=== PATIENT | male | born 1975 | race Hispanic/Latino ===

== ENCOUNTER 2017-04-28 08:04 | Emergency (ER) | payer SELFPAY ==
[2017-04-28 08:50] LABS: #Basophils 0.1 thou/uL (0.0-0.2); #Lymphocytes 1.6 thou/uL (1.20-3.40); #Monocytes 0.4 thou/uL (0.11-0.59); #Neutrophils 8.3 thou/uL (1.40-6.50); %Basophils 0.8 % (0.0-1.0); %Eosinophils 0.4 % (0.0-10.0); %Lymphocytes 15.1 % (21.0-51.0); %Monocytes 3.7 % (0.0-10.0); Hematocrit 42.1 % (42.0-52.0); Mean Platelet Volume 6.9 fL (7.4-10.4); Red Blood Cell (RBC) Count 4.65 mill/uL (4.70-6.10); White Blood Cell (WBC) Count 10.3 thou/uL (4.8-10.8)
[2017-04-28] MEDS ORDERED: Lorazepam 2 MG/ML VIAL ONE (09:05)
[2017-04-28 09:13] LABS: ALT (SGPT) 27 U/L (8-55); AST (SGOT) 18 U/L (5-34); Alkaline Phosphatase 100 U/L (40-150); Anion Gap 14 mmol/L (10-20); BUN (Urea Nitrogen) 16 mg/dL (8.9-20.6); Bilirubin, Total 0.3 mg/dL (0.2-1.2); Calc. Creatinine Clearance 0 mL/min (70-130); Calcium 9.5 mg/dL (7.8-10.44); Carbon Dioxide 26 mmol/L (22-29); Chloride 101 mmol/L (98-107); Estimated GFR-MDRD Greater than 90; Globulin 3.7 g/dL (2.4-3.5); Protein, Total 8.2 g/dL (6.0-8.3)
[2017-04-28] MEDS ORDERED: Fosphenytoin Sodium 100 MG in Sodium Chloride 0.9% 50 ML IVPB SCH (09:30)
--- NOTE | 2017-04-28 10:15 | CT ---
CT HEAD WITHOUT IV CONTRAST: Date: 04-28-17 History: Patient presents with seizure. 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 Comparison: MRI brain 02-02-15, CT brain 02-02-15. FINDINGS: Again noted is prominent craniotomy defect in the left frontal region which is unchanged. Previously described complex solid and cystic mass which again appears to emanate from the region of the sella turcica and extends into the suprasellar region. The cystic component along the anterior and superior margins of this mass is stable in size and appearance. Soft tissue component of the mas s is also similar in appearance which again extends into the region of the cavernous sinuses bilater ally, but must more prominent on the right which is also a stable finding compared to the prior CT s can of the head. Soft tissue mass is difficult to measure given morphology, but greatest AP dimensio n is 2.9 cm which is stable in size compared to study on 01-01-15 as well as the more recent study. C ystic component of this mass previously measured 3.5 cm in maximal dimension and on today's exam alfie sures approximately 3 cm. This again extends into the inferior right frontal lobe. There has been no significant interval change in mass effect when compared to the prior study. Sligh t blunting of the more inferior aspect of the anterior superior falx, but this is also similar to th e prior exams and is unchanged. No new mass is visualized. There is no acute cortical infarction or hemorrhage seen. Previously noted low density mass dorsal aspect of the central canal posterior to the spinal cord an d region of the cervical medullary junction is again seen and also stable in appearance. There has b een no other interval change compared to the prior exam or study on 01-01-15. IMPRESSION: 1. 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 This is stable in size and appearance. 2. Stable low density cystic appearing mass lesion dorsal aspect of the upper cervical cord which is stable in size, and appears extramedullary resulting in mass effect on the cervicomedullary junctio n. If needed, this could be re-evaluated with MRI brain. 3. No intraparenchymal or extraaxial hemorrhage is seen, and there is no acute infarction identified . POS: [facility]
[2017-04-28 13:34] LABS: Bilirubin Negative (Negative); Blood, Urine Negative (Negative); Glucose, Urine (Dipstick) Negative (Negative); Ketone, Urine Negative (Negative); Nitrite Negative (Negative); Protein, Urine (Dipstick) Trace mg/dL (Neg-Trace); Urobilinogen 0.2 mg/dL (0.2-1.0)
[2017-04-28] MEDS ORDERED: Acetaminophen 325 MG TAB ONE (15:50)
== END 2017-04-28 16:35 | disposition short-term general hospital (02) ==
LOC: ERS 08:04
DX: G40.409 Other generalized epilepsy and epileptic syndromes, not intractable, without status epilepticus (principal); G93.9 Disorder of brain, unspecified; E03.9 Hypothyroidism, unspecified; Z85.841 Personal history of malignant neoplasm of brain
CPT/HCPCS: 36416; 70450; 80053; 80185; 81003; 84146; 84443; 85025; 94760; J2060; J7050; Q2009

== ENCOUNTER 2019-03-06 23:22 | Emergency (ER) | payer SELFPAY ==
[2019-03-06 23:59] LABS: #Basophils 0.1 thou/uL (0.0-0.2); #Eosinphils 0.1 thou/uL (0.0-0.7); #Lymphocytes 3.4 thou/uL (1.20-3.40); #Monocytes 0.8 thou/uL (0.11-0.59); #Neutrophils 6.5 thou/uL (1.40-6.50); %Basophils 0.9 % (0.0-1.0); %Eosinophils 0.8 % (0.0-10.0); %Lymphocytes 30.9 % (21.0-51.0); %Monocytes 7.7 % (0.0-10.0); %Neutrophils 59.7 % (42.0-75.0); Hemoglobin 13.7 g/dL (14.0-18.0); Mean Corpuscular HGB CONC 34.1 g/dL (32.0-36.0); Mean Corpuscular Hemoglobin 30.4 pg (27.0-31.0); Mean Corpuscular Volume 89.1 fL (78.0-98.0); Mean Platelet Volume 7.2 fL (7.4-10.4); Platelet Count 412 thou/uL (130-400); RBC Distribution Width 12.6 % (11.5-14.5); Red Blood Cell (RBC) Count 4.51 mill/uL (4.70-6.10); White Blood Cell (WBC) Count 10.8 thou/uL (4.8-10.8)
[2019-03-07 00:25] LABS: ALT (SGPT) 34 U/L (8-55); AST (SGOT) 21 U/L (5-34); Albumin 4.3 g/dL (3.5-5.0); Alkaline Phosphatase 100 U/L (40-150); Anion Gap 9 mmol/L (10-20); BUN (Urea Nitrogen) 11 mg/dL (8.9-20.6); Bilirubin, Total 0.2 mg/dL (0.2-1.2); Calc. Creatinine Clearance 0 mL/min (70-130); Calcium 9.6 mg/dL (7.8-10.44); Carbon Dioxide 34 mmol/L (22-29); Chloride 101 mmol/L (98-107); Dilantin 5.5 ug/mL (10.0-20.0); Estimated GFR-MDRD Greater than 90; Globulin 3.2 g/dL (2.4-3.5); Glucose 171 mg/dL (70-105); Potassium 3.8 mmol/L (3.5-5.1); Protein, Total 7.5 g/dL (6.0-8.3); Sodium 140 mmol/L (136-145)
[2019-03-07] MEDS ORDERED: SODIUM CHLORIDE 0.9% IVPB SCH (01:15)
[2019-03-07] MEDS ORDERED: FOSPHENYTOIN SODIUM IVPB SCH (01:15)
[2019-03-07] MEDS ORDERED: diphenhydrAMINE 25 MG CAP ONE (02:00)
== END 2019-03-07 02:26 | disposition home or self-care (01) ==
LOC: ERS 23:22
DX: R56.9 Unspecified convulsions (principal)
CPT/HCPCS: 36415; 80053; 80185; 85025; 96374; J3490; Q0163; Q2009

== ENCOUNTER 2019-08-16 13:54 | Emergency (ER) | payer SELFPAY ==
--- NOTE | 2019-08-16 14:49 | RAD ---
XR Knee Lt 4 View STANDARD History: Injury Comparison: None. Findings: Small joint effusion. No acute displaced fracture or malalignment. Minimal medial compartme nt joint space narrowing. Impression: Small joint effusion without acute displaced fracture or malalignment appreciated.
== END 2019-08-16 15:35 | disposition home or self-care (01) ==
LOC: ERS 13:54
DX: M25.562 Pain in left knee (principal); E03.9 Hypothyroidism, unspecified; E78.5 Hyperlipidemia, unspecified; E78.00 Pure hypercholesterolemia, unspecified; W11.XXXA Fall on and from ladder, initial encounter

== ENCOUNTER 2021-01-17 23:41 | Emergency (ER) | payer SELFPAY ==
[2021-01-18 00:43] LABS: #Basophils 0.1 thou/uL (0.0-0.2); #Eosinphils 0.1 thou/uL (0.0-0.7); #Lymphocytes 3.5 thou/uL (1.20-3.40); #Monocytes 0.8 thou/uL (0.11-0.59); #Neutrophils 3.5 thou/uL (1.40-6.50); %Basophils 1.1 % (0.0-1.0); %Eosinophils 1.3 % (0.0-10.0); %Lymphocytes 43.9 % (21.0-51.0); %Monocytes 10.2 % (0.0-10.0); %Neutrophils 43.4 % (42.0-75.0); Hemoglobin 13.4 g/dL (14.0-18.0); Mean Corpuscular HGB CONC 35.7 g/dL (32.0-36.0); Mean Corpuscular Hemoglobin 31.7 pg (27.0-31.0); Mean Corpuscular Volume 88.8 fL (78.0-98.0); Mean Platelet Volume 7.4 fL (7.4-10.4); Platelet Count 412 thou/uL (130-400); RBC Distribution Width 12.3 % (11.5-14.5); Red Blood Cell (RBC) Count 4.21 mill/uL (4.70-6.10)
[2021-01-18 00:56] LABS: ALT (SGPT) 25 U/L (8-55); AST (SGOT) 20 U/L (5-34); Albumin 4.1 g/dL (3.5-5.0); Alkaline Phosphatase 92 U/L (40-110); Anion Gap 15 mmol/L (10-20); BUN (Urea Nitrogen) 16 mg/dL (8.9-20.6); Bilirubin, Total 0.3 mg/dL (0.2-1.2); Calc. Creatinine Clearance 0 mL/min (70-130); Calcium 9.5 mg/dL (7.8-10.44); Carbon Dioxide 26 mmol/L (22-29); Chloride 106 mmol/L (98-107); Globulin 3.2 g/dL (2.4-3.5); Glucose 140 mg/dL (70-105); Potassium 3.6 mmol/L (3.5-5.1); Protein, Total 7.3 g/dL (6.0-8.3); Sodium 143 mmol/L (136-145)
== END 2021-01-18 02:24 | disposition home or self-care (01) ==
LOC: ERS 23:41
DX: G93.89 Other specified disorders of brain (principal); U07.1 COVID-19; G95.89 Other specified diseases of spinal cord; R56.9 Unspecified convulsions; E03.9 Hypothyroidism, unspecified; E78.5 Hyperlipidemia, unspecified; E78.00 Pure hypercholesterolemia, unspecified; Z79.899 Other long term (current) drug therapy
CPT/HCPCS: 70450; 71045; 80053; 84484; 85025; 93005

== ENCOUNTER 2022-01-08 12:19 | Emergency (ER) | payer OTHER, SELFPAY ==
[2022-01-08] MEDS ORDERED: Ketorolac Tromethamine 30 MG/ML VIAL ONE (12:50)
[2022-01-08] MEDS ORDERED: Morphine 4 MG/ML VIAL ONE (14:14)
== END 2022-01-08 14:42 | disposition home or self-care (01) ==
LOC: ERS 12:19
DX: S82.302A Unspecified fracture of lower end of left tibia, initial encounter for closed fracture (principal); S82.832A Other fracture of upper and lower end of left fibula, initial encounter for closed fracture; E03.9 Hypothyroidism, unspecified; E78.5 Hyperlipidemia, unspecified; G40.909 Epilepsy, unspecified, not intractable, without status epilepticus; Z79.899 Other long term (current) drug therapy; W22.8XXA Striking against or struck by other objects, initial encounter
CPT/HCPCS: 96374; 96375; J1885; J2270

== ENCOUNTER 2023-05-09 22:59 | Observation (INO) | payer SELFPAY ==
[2023-05-10 00:08] LABS: #Basophils 0.1 thou/uL (0.0-0.2); #Monocytes 0.4 thou/uL (0.11-0.59); #Neutrophils 12.7 thou/uL (1.40-6.50); %Basophils 0.6 % (0.0-1.0); %Lymphocytes 10.3 % (21.0-51.0); %Monocytes 2.7 % (0.0-10.0); %Neutrophils 85.2 % (42.0-75.0); Hematocrit 40.7 % (42.0-52.0); Hemoglobin 13.8 g/dL (14.0-18.0); Mean Corpuscular HGB CONC 33.9 g/dL (32.0-36.0); Mean Corpuscular Hemoglobin 29.7 pg (27.0-31.0); Mean Corpuscular Volume 87.5 fl (78.0-98.0); Mean Platelet Volume 9.8 fL (7.4-10.4); Platelet Count 437 10x3/uL (130-400); RBC Distribution Width 13.2 % (11.5-14.5); Red Blood Cell (RBC) Count 4.65 mill/uL (4.70-6.10)
[2023-05-10] MEDS ORDERED: Fosphenytoin Sodium 1,500 MG in Sodium Chloride 0.9% 50 ML IVPB SCH (00:30)
[2023-05-10 00:32] LABS: Dilantin Less than 1.8 ug/mL (10.0-20.0)
[2023-05-10 00:32] LABS: ALT (SGPT) 20 U/L (8-55); AST (SGOT) 17 U/L (5-34); Albumin 4.5 g/dL (3.5-5.0); Alkaline Phosphatase 105 U/L (40-110); Anion Gap 19 mmol/L (10-20); BUN (Urea Nitrogen) 10 mg/dL (8.9-20.6); Bilirubin, Total 0.3 mg/dL (0.2-1.2); Calc. Creatinine Clearance 0 mL/min (70-130); Calcium 9.3 mg/dL (7.8-10.44); Carbon Dioxide 22 mmol/L (22-29); Chloride 101 mmol/L (98-107); Estimated GFR 111; Globulin 3.4 g/dL (2.4-3.5); Glucose 214 mg/dL (70-105); Magnesium 2.5 mg/dL (1.6-2.6); Potassium 3.7 mmol/L (3.5-5.1); Protein, Total 7.9 g/dL (6.0-8.3); Sodium 138 mmol/L (136-145)
[2023-05-10] MEDS ORDERED: Ondansetron PF 4 MG/2 ML Vial ONE (01:15)
[2023-05-10] MEDS ORDERED: Lorazepam 2 MG/ML VIAL SLOW IVP PRN (02:06)
[2023-05-10] MEDS ORDERED: Ondansetron ODT 4 MG TAB PO PRN (02:07)
[2023-05-10] MEDS ORDERED: Ondansetron PF 4 MG/2 ML Vial IVP PRN (02:07)
[2023-05-10] MEDS ORDERED: Acetaminophen 325 MG TAB PO PRN (02:07)
[2023-05-10] MEDS ORDERED: Ketorolac Tromethamine 30 MG/ML VIAL ONE (02:12)
[2023-05-10 04:59] VITALS: BMI 39.6
[2023-05-10 05:45] LABS: #Basophils 0.1 thou/uL (0.0-0.2); #Monocytes 0.6 thou/uL (0.11-0.59); #Neutrophils 13.2 thou/uL (1.40-6.50); %Basophils 0.4 % (0.0-1.0); %Lymphocytes 11.1 % (21.0-51.0); %Monocytes 3.9 % (0.0-10.0); %Neutrophils 83.9 % (42.0-75.0); Hematocrit 39.8 % (42.0-52.0); Hemoglobin 13.5 g/dL (14.0-18.0); Mean Corpuscular HGB CONC 33.9 g/dL (32.0-36.0); Mean Corpuscular Volume 88.4 fl (78.0-98.0); Mean Platelet Volume 9.9 fL (7.4-10.4); Platelet Count 418 10x3/uL (130-400); RBC Distribution Width 13.1 % (11.5-14.5); White Blood Cell (WBC) Count 15.7 10x3/uL (4.8-10.8)
[2023-05-10 07:00] LABS: Anion Gap 16 mmol/L (10-20); BUN (Urea Nitrogen) 11 mg/dL (8.9-20.6); Calc. Creatinine Clearance 205 mL/min (70-130); Carbon Dioxide 24 mmol/L (22-29); Chloride 102 mmol/L (98-107); Estimated GFR 114; Glucose 146 mg/dL (70-105); Magnesium 2.5 mg/dL (1.6-2.6); Potassium 3.9 mmol/L (3.5-5.1); Sodium 138 mmol/L (136-145)
[2023-05-10] MEDS: Famotidine/PF 20 mg/2ml Vial SLOW IVP SCH ×2 (10:52→21:55)
[2023-05-10] MEDS: Famotidine 20 MG TAB PO SCH ×2 (10:53→21:52)
[2023-05-10] MEDS ORDERED: Magnevist 469MG/ML 20 ML VIAL ONE (11:18)
[2023-05-10] MEDS ORDERED: Phenytoin Extended Release 100 MG CAP PO SCH ×2 (15:00→21:00)
[2023-05-10 16:01] LABS: Dilantin 13.6 ug/mL (10.0-20.0)
[2023-05-10] MEDS: Bromocriptine 2.5 MG TAB PO SCH (18:15)
[2023-05-11] MEDS: Bromocriptine 2.5 MG TAB PO SCH ×2 (00:08→09:06)
[2023-05-11 04:47] LABS: #Basophils 0.1 thou/uL (0.0-0.2); #Eosinphils 0.1 thou/uL (0.0-0.7); #Monocytes 1.4 thou/uL (0.11-0.59); #Neutrophils 5.6 thou/uL (1.40-6.50); %Basophils 0.7 % (0.0-1.0); %Eosinophils 0.4 % (0.0-10.0); %Lymphocytes 36.7 % (21.0-51.0); %Monocytes 12.6 % (0.0-10.0); %Neutrophils 49.2 % (42.0-75.0); Hematocrit 37.8 % (42.0-52.0); Hemoglobin 12.7 g/dL (14.0-18.0); Mean Corpuscular HGB CONC 33.6 g/dL (32.0-36.0); Mean Corpuscular Hemoglobin 30.2 pg (27.0-31.0); Mean Corpuscular Volume 89.8 fl (78.0-98.0); Mean Platelet Volume 9.6 fL (7.4-10.4); Platelet Count 388 10x3/uL (130-400); RBC Distribution Width 13.3 % (11.5-14.5); Red Blood Cell (RBC) Count 4.21 mill/uL (4.70-6.10); White Blood Cell (WBC) Count 11.3 10x3/uL (4.8-10.8)
[2023-05-11 05:13] LABS: Dilantin 14.3 ug/mL (10.0-20.0)
[2023-05-11 12:02] VITALS: BP 102/58; TEMP 98.6
== END 2023-05-11 12:42 | disposition home or self-care (01) ==
LOC: ERS 22:59 → 2SW 05-10 01:10
PROVIDERS: ADMIT Student in an Organized Health Care Education/Training Program; ATTEND Family Medicine
DX: G40.909 Epilepsy, unspecified, not intractable, without status epilepticus (principal); D35.2 Benign neoplasm of pituitary gland; E03.9 Hypothyroidism, unspecified; E78.5 Hyperlipidemia, unspecified
CPT/HCPCS: 36415; 70553; 80048; 80053; 80185; 83735; 85025; 93005; 95711; 95819; 96365; 96375; A9579; G0378; J1885; J2405; Q2009; S0028

== ENCOUNTER 2024-01-16 16:08 | Emergency (ER) | payer SELFPAY ==
[2024-01-16] MEDS ORDERED: levETIRAcetam 500 MG (5 mL) VIAL ONE (16:11)
[2024-01-16] MEDS ORDERED: Lorazepam 2 MG/ML VIAL ONE (16:15)
[2024-01-16 16:37] LABS: #Basophils 0.16 10x3/uL (0.0-0.2); %Basophils 0.8 % (0.0-1.0); %Lymphocytes 39.3 % (21.0-51.0); %Monocytes 9.8 % (0.0-10.0); %Neutrophils 48.1 % (42.0-75.0); Hematocrit 45.8 % (42.0-52.0); Hemoglobin 15.2 g/dL (14.0-18.0); Mean Corpuscular HGB CONC 33.2 g/dL (32.0-36.0); Mean Corpuscular Hemoglobin 29.7 pg (27.0-31.0); Mean Corpuscular Volume 89.6 fL (78.0-98.0); Mean Platelet Volume 10.2 fL (7.4-10.4); Platelet Count 466 10x3/uL (130-400); RBC Distribution Width 13.3 % (11.5-14.5); Red Blood Cell (RBC) Count 5.11 mill/uL (4.70-6.10)
[2024-01-16] MEDS ORDERED: Fosphenytoin Sodium 500 mg/10 ml Vial ONE (16:38)
[2024-01-16 16:53] LABS: Dilantin Less than 1.8 ug/mL (10.0-20.0)
[2024-01-16 16:57] LABS: ALT (SGPT) 18 U/L (8-55); AST (SGOT) 22 U/L (5-34); Albumin 4.4 g/dL (3.5-5.0); Alkaline Phosphatase 113 U/L (40-110); Anion Gap 32 mmol/L (10-20); BUN (Urea Nitrogen) 13 mg/dL (8.9-20.6); Bilirubin, Total 0.3 mg/dL (0.2-1.2); Calc. Creatinine Clearance 0 mL/min (70-130); Calcium 9.7 mg/dL (7.8-10.44); Carbon Dioxide 11 mmol/L (22-29); Chloride 103 mmol/L (98-107); Estimated GFR 108; Globulin 3.9 g/dL (2.4-3.5); Glucose 167 mg/dL (70-105); Potassium 4.1 mmol/L (3.5-5.1); Protein, Total 8.3 g/dL (6.0-8.3); Sodium 142 mmol/L (136-145)
[2024-01-16 16:59] LABS: Troponin I Less than 0.010 ng/mL (< 0.028)
[2024-01-16] MEDS ORDERED: Fosphenytoin Sodium 1,500 MG, Admixture Fee 1 EACH in Sodium Chloride 0.9% 100 ML IVPB SCH (17:00)
== END 2024-01-16 18:40 | disposition home or self-care (01) ==
LOC: ERS 16:08
DX: R56.9 Unspecified convulsions (principal); S01.512A Laceration without foreign body of oral cavity, initial encounter; X58.XXXA Exposure to other specified factors, initial encounter
CPT/HCPCS: 70450; 80053; 80177; 80185; 84146; 84484; 85025; 93005; 94760; 96365; 96367; 96375; J1953; J2060; Q2009